=== PATIENT | female | born 1975 | race Caucasian/White ===

== ENCOUNTER 2017-08-22 18:41 | Emergency (ER) | payer MEDICAID ==
[~2017-08-22] VITALS: Ht 157.5 cm; Wt 82.5 kg
[2017-08-22 19:22] VITALS: Ht 157.5 cm; Wt 82.5 kg
[2017-08-22 20:36] VITALS: BP 126/80
== END 2017-08-22 20:36 | disposition home or self-care (01) ==
LOC: ED 18:41
DX: N64.89 Other specified disorders of breast (principal); I10 Essential (primary) hypertension

== ENCOUNTER 2017-12-20 18:43 | Inpatient (IN) | payer MEDICAID ==
[~2017-12-20] VITALS: Ht 160 cm; Wt 85.0 kg
[2017-12-20 21:10] LABS: BASOPHIL % 0.9 % (0-2); PLATELET COUNT 206 x10^3mcL (130-400); RED CELL DISTRIBUTION WIDTH 14.1 % (11.5-14.5)
[2017-12-20 21:22] LABS: ALBUMIN 3.4 g/dL (3.4-5.0); ALKALINE PHOSPHATASE 88 U/L (46-116); ALT/SGPT 54 U/L (14-59); AST/SGOT 44 U/L (15-37); BILIRUBIN TOTAL 0.3 mg/dL (0.20-1.00); CALCIUM 8.8 mg/dL (8.5-10.1); CHLORIDE SERUM 106 mmol/L (98-107); CREATININE SERUM 0.6 mg/dL (0.6-1.0); GFR1 > 60 mL/min; GLUCOSE SERUM 110 mg/dL (74-106); SODIUM SERUM 135 mmol/L (136-145)
[2017-12-20 21:27] LABS: POTASSIUM SERUM 2.9 mmol/L (3.5-5.1)
[2017-12-21 00:03] LABS: UA SPECIFIC GRAVITY <=1.005 (1.005-1.035); microscopic required? YES; urine erythrocyte 3+ (NEGATIVE)
[2017-12-21 00:27] VITALS: BP 116/57
[2017-12-21 00:29] LABS: T3 TOTAL 1.37 ng/mL
[2017-12-21 00:30] LABS: MAGNESIUM 2.3 mg/dL (1.8-2.4); PHOSPHOROUS 3.3 mg/dL (2.5-4.9)
[2017-12-21 00:32] LABS: CHOLESTEROL/HDL RATIO 2.8
[2017-12-21 00:33] LABS: FREE T4 1.06 ng/dL (0.76-1.46); FREE THYROXINE INDEX 2.9 ug/dL (1.4-4.5); T4(THYROXINE) 9.4 ug/dL (4.7-13.3)
[2017-12-21 05:46] VITALS: BP 112/57
[2017-12-21 06:09] LABS: AMPHETAMINE QUAL UR NONE DETECTED (See below)
[2017-12-21 06:43] LABS: BASOPHIL % 0.7 % (0-2); PLATELET COUNT 183 x10^3mcL (130-400); RED CELL DISTRIBUTION WIDTH 14.2 % (11.5-14.5)
[2017-12-21 06:49] LABS: CALCIUM 8.2 mg/dL (8.5-10.1); CARBON DIOXIDE 22.4 mmol/L (21-32); CHLORIDE SERUM 111 mmol/L (98-107); CREATININE SERUM 0.7 mg/dL (0.6-1.0); GFR1 > 60 mL/min; GLUCOSE SERUM 104 mg/dL (74-106); MAGNESIUM 2.8 mg/dL (1.8-2.4); PHOSPHOROUS 4.6 mg/dL (2.5-4.9); POTASSIUM SERUM 4.7 mmol/L (3.5-5.1); SODIUM SERUM 139 mmol/L (136-145)
[2017-12-21 08:28] VITALS: BP 108/62
[2017-12-21 13:10] VITALS: BP 107/52
[2017-12-21 15:45] VITALS: BP 100/57
[2017-12-21] MEDS ORDERED: LIB25 PO (17:35)
[2017-12-21] MEDS ORDERED: ATIVAN1 MG PO (17:36)
[2017-12-21] MEDS ORDERED: LIPI20 PO (17:37)
[2017-12-21 18:30] VITALS: BP 100/57
== END 2017-12-21 19:15 | disposition home or self-care (01) | DRG 756 ==
LOC: ED 18:43 → DU 23:11 → MU 23:11 → DU 12-21 02:44
PROVIDERS: Emergency Medicine; Internal Medicine
DX: F41.9 Anxiety disorder, unspecified (principal); E87.1 Hypo-osmolality and hyponatremia; E87.6 Hypokalemia; R74.0 Nonspecific elevation of levels of transaminase and lactic acid dehydrogenase [LDH]; E78.1 Pure hyperglyceridemia; E66.9 Obesity, unspecified; F10.10 Alcohol abuse, uncomplicated; Y90.9 Presence of alcohol in blood, level not specified; Z68.33 Body mass index [BMI] 33.0-33.9, adult
CPT/HCPCS: 84439; G0480; J2060; J3475; J3480; J7030; Q0092; Q0162

== ENCOUNTER 2019-06-22 14:48 | Emergency (ER) | payer MEDICAID ==
[~2019-06-22] VITALS: Ht 157.5 cm; Wt 88.5 kg
[~2019-06-22 14:48] MED LIST: ATIVAN1 MG PO; LIB25 PO; LIPI20 PO
[2019-06-22 14:56] VITALS: Ht 157.5 cm; Wt 88.5 kg
[2019-06-22 15:58] VITALS: BP 121/75
== END 2019-06-22 15:58 | disposition home or self-care (01) ==
LOC: ED 14:48
DX: F41.9 Anxiety disorder, unspecified (principal); R06.02 Shortness of breath; I10 Essential (primary) hypertension; Z98.890 Other specified postprocedural states

== ENCOUNTER 2019-11-03 14:57 | Emergency (ER) | payer MEDICAID, SELFPAY ==
[~2019-11-03] VITALS: Ht 157.5 cm; Wt 88.9 kg
[2019-11-03 15:49] VITALS: BP 117/72; Ht 157.5 cm; Wt 88.9 kg
== END 2019-11-03 19:40 | disposition home or self-care (01) ==
LOC: ED 14:57
DX: B34.9 Viral infection, unspecified (principal); Z20.828 Contact with and (suspected) exposure to other viral communicable diseases
CPT/HCPCS: U0003-CS